=== PATIENT | female | born 1960 | race Caucasian/White ===

== ENCOUNTER → 2016-10-21 | Outpatient (CLI) | payer OTHER | LOC: RAD 13:07 | DX: R05 Cough (principal) | CPT/HCPCS: 71020 ==

== ENCOUNTER 2021-07-12 20:36 | Emergency (ER) | payer OTHER ==
[~2021-07-12 20:36] MED LIST: ALEVE220 MG PO; AUGMENTIN 875-1 EACH PO; CARVEDILOL25 MG PO; CIPRO500 MG PO; CLEOCIN HCL300 MG PO; CYANOCOBAL1000 MCG/1 INJ; DIFLUCAN 100 M100 MG PO; DIFLUCAN150 MG PO; FERROUS GLUCON324 M1 PO; FLAGYL500 MG PO; FLEXERIL 10 MG10 MG PO; GLUCOPHAGE 500500 MG PO; HYDROCODON-ACE1 EAC2 PO; IBUPROFEN600 MG PO; IMITREX25 MG PO; IMODIUM CAP 2 MG2 MG PO; LISINOPRIL-HCT1 EACH PO; MYLICON CHEWABL80 MG PO; NAMENDA10 MG PO; NEURONTIN400 MG PO; PEPTO-BISM262 MG/15 PO; POTASSIUM CHLO20 ME1 PO; VITAMIN D350000 UNIT PO; ZANAFLEX4 M1 PO; ZOFRAN 4 MG TAB4 MG PO; ZOFRAN4 MG PO; ZYRTEC10 MG PO
== END 2021-07-12 23:20 | disposition left against medical advice (07) ==
LOC: ER1 20:36
DX: R21 Rash and other nonspecific skin eruption (principal); I10 Essential (primary) hypertension; Z88.1 Allergy status to other antibiotic agents
CPT/HCPCS: 99281